=== PATIENT | female | born 1980 | race Caucasian/White ===

== ENCOUNTER 2021-06-21 10:21 | Outpatient (CLI) | payer BC, SELFPAY ==
[2021-06-21 10:50] LABS: Hematocrit 39.7 % (37-47); Mean Corp Hgb Conc 35.3 g/dL (32-36); Mean Corpuscular Hgb 31.7 pg (27.0-32.0); Mean Corpuscular Volume 89.8 fL (81-99); Platelet Count 313 K/mm3 (150-450); RBC Distribution Width CV 12.7 % (11.6-14.6); RBC Distribution Width SD 42.2 fl (35.1-43.9); Red Blood Count 4.42 M/mm3 (4.2-5.4); White Blood Count 7.6 K/mm3 (4.4-11.0)
[2021-06-21 11:10] LABS: Estradiol 54.7 pg/mL; Follicle Stimulating Hormone 2.6 mIU/mL; Luteinizing Hormone 3.2 mIU/mL; Prolactin 10.1 ng/mL; T4 Free Direct 0.76 ng/dL (0.76-1.46)
== END 2021-06-21 23:59 | disposition home or self-care (01) ==
LOC: WOBLAB 10:25
PROVIDERS: Visit Provider Obstetrics & Gynecology
DX: N93.9 Abnormal uterine and vaginal bleeding, unspecified (principal)
CPT/HCPCS: 36415; 82670; 83001; 83002; 84146; 84439; 84443; 85027

== ENCOUNTER 2021-07-12 10:07 | Outpatient (CLI) | payer BC, SELFPAY ==
--- NOTE | 2021-07-12 | EMB_PTH ---
PATIENT: YENY TAYLOR LOC: [facility] U#:[id number] AGE/SX: 40/F ROOM: RE07/12/[address]: Dr. Gene Nascimento MD : [id number] BED: DIS: 07/12/2021 SPEC #: [id number] RECD: 07/12/21 10:53 STATUS: HERIBERTO DESMOND #: [id number] GENARO: 07/12/21 00:[address]: Gene Nascimento DEPT: SURGICAL PATHOLOGY RECD BY: Chato Ceja Tissues: Endometrium, NOS Procedures: Surgery Specimen Level IV HEADER OPERATION: Endometrial biopsy PRE-OP DIAGNOSIS: Abnormal uterine bleeding TISSUE SUBMITTED: Endometrial biopsy MICROSCOPIC DIAGNOSIS Endometrial biopsy: Proliferative endometrium. SJ:thai 07/13/2021 MICROSCOPIC DESCRIPTION Slides are reviewed. GROSS DESCRIPTION Received in fixative is one container labeled with the patient's name and designated endometrial biopsy. The specimen consists of multiple irregular and elongated fragments of light to dark gordon soft tissue that in aggregate measure 2.5 x 1.5 x 0.2 cm. The specimen is totally submitted in one cassette. / AM:thai 07/12/2021 TC:4 CPT: 59227
== END 2021-07-12 23:59 | disposition home or self-care (01) ==
LOC: LABSPEC 10:08
PROVIDERS: Visit Provider Obstetrics & Gynecology
DX: N93.9 Abnormal uterine and vaginal bleeding, unspecified (principal)
CPT/HCPCS: 88305

== ENCOUNTER → 2022-10-19 | Outpatient (CLI) | payer OTHER, SELFPAY ==
[2022-10-24 12:19] LABS: HPV APTIMA, High Risk Negative (Negative)
== END | disposition home or self-care (01) ==
LOC: LABSPEC 10:36
PROVIDERS: Visit Provider Nurse Practitioner Women's Health
DX: Z12.4 Encounter for screening for malignant neoplasm of cervix (principal)
CPT/HCPCS: 87624; 88175; G0145